=== PATIENT | male | born 1985 | race Caucasian/White ===

== ENCOUNTER 2019-12-13 21:50 | Emergency (ER) | payer BC ==
[~2019-12-13] VITALS: Ht 167.6 cm; Wt 68.0 kg
[2019-12-13 21:55] VITALS: BP 134/81
--- NOTE | 2019-12-13 22:02 | NUR ---
PT AMBUALTED TO BED 2 WITH STEADY GAIT
--- NOTE | 2019-12-13 22:04 | NUR ---
PT MOVED TO BED 7
--- NOTE | 2019-12-13 22:07 | NUR ---
34 Y/O MALE PRESENTED TO ED C/O MID EPIGASTRIC PAIN ; SHARP, PAIN /10; PAIN DESCRIBED STABBING; NO APPETITE 1 MONTH; +N/V/D/CHILLS; PT STATES VOMITTING FOOD AND ACID. INTERMITTENT DIZZINESS X 1 MONTH. PT AFIBRILE. PT STATES HE WAS AT WORK TODAY AND THE PAIN GOT SO BAD HE HAD TO LEAVE EARLY. PT DENIES SOB. PT ABD FLAT, SOFT, TENDER TO TOUCH IN EPIGASTRIC REGION, NORMOACTIVE BS. PT BREATHING EVEN AND UNLABORED. A/O X4. VSS. PT PLACED IN GOWN. PT RESTING IN BED, LOCKED AND IN LOWEST POSITION, HOB ELEVATED, SIDE RAIL X1. PMH: PT DENIES NKA
[2019-12-13] MEDS ORDERED: DICYCLOMINE HCL LIQUID 20 MG, ALUMINUM HYD/MAG/SIMETHICONE 30 ML, LIDOCAINE VISCOUS 2% ... PO ONE ×3 (22:20)
[2019-12-13] MEDS ORDERED: KETOROLAC 30 MG/ML VIAL IM ONE (22:20)
[2019-12-13] MEDS ORDERED: LIDOCAINE VISCOUS 2% 20 ML UDC ONE (22:21)
[2019-12-13] MEDS ORDERED: ALUMINUM HYD/MAG/SIMETHICONE 30 ML UDC ONE (22:21)
[2019-12-13] MEDS ORDERED: DICYCLOMINE HCL LIQUID 10 MG/5 ML UDC ONE (22:22)
--- NOTE | 2019-12-13 22:27 | NUR ---
US AT BEDSIDE
--- NOTE | 2019-12-13 22:28 | NUR ---
LAB AT BEDSIDE.
[2019-12-13 22:37] LABS: BASOPHILS # (AUTO) 0.1 K/uL (0.00-0.22); BASOPHILS % (AUTO) 0.5 % (0.0-2.0); EOSINOPHILS # (AUTO) 0.1 K/uL (0-0.4); EOSINOPHILS % (AUTO) 0.8 % (0.0-4.0); HEMATOCRIT 50.2 % (36-52); HEMOGLOBIN 17.7 g/dL (12.0-18.0); LYMPHOCYTES # (AUTO) 2.8 K/uL (2.0-11.5); LYMPHOCYTES % (AUTO) 27.4 % (20.5-51.1); MEAN CORPUSCULAR HEMOGLOBIN 31 pg (27-31); MEAN CORPUSCULAR HGB CONC 35 g/dL (33-37); MONOCYTES # (AUTO) 0.8 K/uL (0.8-1.0); MONOCYTES % (AUTO) 7.7 % (1.7-9.3); NEUTROPHILS # (AUTO) 6.6 K/uL (1.8-7.7); NEUTROPHILS % (AUTO) 63.6 % (42.2-75.2); PLATELET COUNT (AUTO) 358 K/uL (140-450); RED BLOOD CELL COUNT(AUTO) 5.77 MIL/uL (4.20-6.10); RED CELL DISTRIBUTION WIDTH 13.3 % (11.6-13.7)
[2019-12-13 22:56] LABS: ALBUMIN 4.9 g/dL (3.4-5.0); ANION GAP 15.9 (8-16); CARBON DIOXIDE 25.7 mmol/L (21-32); POTASSIUM 3.6 mmol/L (3.5-5.1); TOTAL BILIRUBIN 0.9 mg/dL (0.0-1.0)
[2019-12-13 23:07] VITALS: BP 134/81
--- NOTE | 2019-12-13 23:07 | NUR ---
Patient discharged with v/s stable. Written and verbal after care instructions given and explained. Patient alert, oriented and verbalized understanding of instructions. Ambulatory with steady gait. All questions addressed prior to discharge. ID band removed. Patient advised to follow up with PMD. Rx of MYLANTA given. Patient educated on indication of medication including possible reaction and side effects. Opportunity to ask questions provided and answered.
[2019-12-13 23:23] LABS: WHITE BLOOD COUNT (AUTO) 10.4 K/uL (4.8-10.8)
== END 2019-12-13 23:07 | disposition home or self-care (01) ==
LOC: MED 21:50
DX: R10.9 Unspecified abdominal pain (principal); R11.2 Nausea with vomiting, unspecified; R63.0 Anorexia; F17.210 Nicotine dependence, cigarettes, uncomplicated; Z71.6 Tobacco abuse counseling
CPT/HCPCS: 36415; 76705; 80053; 81002; 83690; 85025; 96372; 99284; J1885; Q0092